=== PATIENT | male | born 1985 | race Asian ===

== ENCOUNTER 2025-03-21 08:46 | Outpatient (CLI) | payer BC | END 2025-03-21 08:47 | disposition home or self-care (01) | LOC: CSHSLEEP 08:46 | PROVIDERS: ATTEND Nurse Practitioner Family | DX: G47.33 Obstructive sleep apnea (adult) (pediatric) (principal); R53.83 Other fatigue; E66.9 Obesity, unspecified; Z68.31 Body mass index [BMI] 31.0-31.9, adult; R06.83 Snoring | CPT/HCPCS: 95800 ==